=== PATIENT | female | born 1950 | race Two or more races ===

== ENCOUNTER → 2024-09-16 | Outpatient (CLI) | payer MEDICARE, MEDICAID, SELFPAY ==
--- NOTE | 2024-09-16 11:00 | XR_ITS ---
Examination: Screening digital mammography, bilateral Computer aided detection 3-D breast Tomosynthesis, bilateral Date and time of exam: September 16, 2024 1120 hours Compared to mammograms dating to 05/24/2020 Indication: Screening Technique: Nonmagnified MLO, CC views of the breasts to been obtained, reconstructed from 3-D Tomosynthesis images. R2 computer aided detection program utilized for evaluation of suspicious masses and/or abnormal calcifications. 3-D Tomosynthesis images obtained. Findings: Scattered areas of fibroglandular density. Benign calcifications. No interval suspicious masses Impression: BI-RADS category II: Benign Findings. Recommend 1 year follow-up mammogram.
== END | disposition home or self-care (01) ==
PROVIDERS: PCP Nurse Practitioner Family; Referring Provider Nurse Practitioner Family; Visit Provider Nurse Practitioner Family
DX: Z12.31 Encounter for screening mammogram for malignant neoplasm of breast (principal); R92.323 Mammographic fibroglandular density, bilateral breasts; R92.1 Mammographic calcification found on diagnostic imaging of breast
CPT/HCPCS: 77063; 77067

== ENCOUNTER → 2024-10-14 | Outpatient (CLI) | payer MEDICARE, MEDICAID, SELFPAY ==
--- NOTE | 2024-10-14 08:56 | XR_ITS ---
Examination: Wrist, left 3 views Technique: Wrist AP, oblique, lateral 3 views Date and time of exam: October 14, 2024 0905 hours INDICATIONS: Patient fell April 2024 postop reduction wrist fracture FINDINGS: Prominent osteopenia. Healed fracture distal radius with satisfactory alignment IMPRESSION: Healed fracture distal radius with satisfactory alignment
== END | disposition home or self-care (01) ==
PROVIDERS: PCP Nurse Practitioner Family; Referring Provider Orthopaedic Surgery; Visit Provider Orthopaedic Surgery
DX: Z87.81 Personal history of (healed) traumatic fracture (principal); Z98.890 Other specified postprocedural states
CPT/HCPCS: 73110

== ENCOUNTER → 2024-11-06 | Outpatient (CLI) | payer MEDICARE, MEDICAID, SELFPAY ==
--- NOTE | 2024-11-06 09:04 | XR_ITS ---
Examination: Bilateral hands, 6 views. Technique: AP, Oblique, Lateral each hand total 6 views Date and time of exam: November 06, 2024 0957 hours INDICATIONS: Bilateral hand pain beginning 3 days ago. FINDINGS: Severe osteopenia Old healed fracture distal left radius Bilateral significant osteoarthritis interphalangeal joints as well as first carpometacarpal joints No fractures Bilateral mild to moderate osteoarthritis radiocarpal joints Impression: Osteoarthritis as above
== END | disposition home or self-care (01) ==
PROVIDERS: PCP Nurse Practitioner Family; Referring Provider Nurse Practitioner Family; Visit Provider Nurse Practitioner Family
DX: M19.042 Primary osteoarthritis, left hand (principal); M19.041 Primary osteoarthritis, right hand
CPT/HCPCS: 73130

== ENCOUNTER → 2024-12-09 | Outpatient (CLI) | payer MEDICARE, MEDICAID, SELFPAY ==
--- NOTE | 2024-12-09 | XR_ITS ---
EXAMINATION: Cervical spine, 5 views Technique: Cervical spine AP, AP odontoid, lateral, bilateral obliques, 5 views Exam date and time: December 09, 2024 0814 hours INDICATIONS: Neck pain beginning one year ago. FINDINGS: Straightening normal cervical lordosis. Intact odontoid No cervical fracture. Advanced degenerative disc disease C5-C6, C6-C7 with mild bilateral neural foraminal stenosis IMPRESSION: Advanced degenerative disc disease C5-C6, C6-C7
--- NOTE | 2024-12-09 | XR_ITS ---
Examination: Scoliosis survey 2, views. Technique: AP standing thoracic, AP standing lumbar spine, two views. Exam date and time: December 09, 2024 0814 hours INDICATIONS: Back pain one year. FINDINGS: Significant osteopenia Number dextroscoliosis 6 degrees No vertebral body fracture No segmentation anomalies Mild bilateral hip osteoarthritis Impression: Lumbar dextroscoliosis 6 degrees
== END | disposition home or self-care (01) ==
PROVIDERS: PCP Nurse Practitioner Family; Referring Provider Nurse Practitioner Family; Visit Provider Nurse Practitioner Family
DX: M50.323 Other cervical disc degeneration at C6-C7 level (principal); M41.86 Other forms of scoliosis, lumbar region
CPT/HCPCS: 72050; 72082

== ENCOUNTER 2024-12-17 08:36 | Outpatient (AMB) | payer MEDICARE, MEDICAID, SELFPAY ==
[2024-12-17 08:47] VITALS: BP 157/69; PULSE 59; RESP 18; TEMP 36; O2SAT 99; BMI 26.7
--- NOTE | 2024-12-17 08:47 | AMB.GYNCLNOT ---
Vital Signs 12/17/24 08:47 Height 1.68 m Height Method Stated Weight 75.466 kg Weight Measurement Method Standing Scale BMI 26.7 BP 157/69 H Blood Pressure Source Automatic Cuff Blood Pressure Location Left Upper Arm Position Sitting Respiration 18 Pulse 59 L Pulse Source Monitor Temp 96.8 F Temp Source Oral Pulse Oximetry (%) 99 Oxygen Delivery Method Room Air Allergies/Home Meds Allergies & Medications Allergies iodine Allergy (Intermediate, Verified 12/17/24 08:49) Rash aspirin Allergy (Mild, Verified 12/17/24 08:49) VOMITING metoclopramide Adverse Reaction (Intermediate, Verified 12/17/24 08:49) VOMITING Sulfa (Sulfonamide Antibiotics) Adverse Reaction (Mild, Verified 12/17/24 08:49) VOMITING Medication Reconciliation paroxetine HCl 20 mg tablet (Paxil) 20 mg PO QAM #0 tabs 09/13/16 [History Confirmed 12/17/24] atenolol 50 mg tablet 50 mg PO BID 10/08/19 [History Confirmed 12/17/24] clonazepam 0.5 mg tablet 0.5 mg PO HS 08/12/21 [History Confirmed 12/17/24] Held on 12/22/23. Instructions: Resume on 12/23/23. cetirizine 10 mg tablet 10 mg PO QDAY 12/21/23 [History Confirmed 12/17/24] levothyroxine 50 mcg tablet 50 mcg PO QDAY 12/21/23 [History Confirmed 12/17/24] simvastatin 20 mg tablet 20 mg PO HS 12/21/23 [History Confirmed 12/17/24] pantoprazole 40 mg tablet,delayed release (Protonix) 40 mg PO QDAY #30 tabs 12/22/23 [Rx Confirmed 12/17/24] benzonatate 100 mg capsule 100 mg PO TID PRN cough #20 caps 12/27/23 [Rx Confirmed 12/17/24] ibuprofen 600 mg tablet 600 mg PO Q8H PRN fever or pain #30 tabs 04/30/24 [Rx Confirmed 12/17/24] ciprofloxacin HCl 500 mg tablet 500 mg PO QPM 90 days #90 tabs 12/17/24 [Rx] Intake Visit Data Collection New Patient or Established: Established Patient (seen at [facility] within 3 years) Reason for Visit:: Recurrent UTI, Atrophic vaginitis Seen by Clinical Staff ONLY (RN/MA): No 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 Electrical Manufacturing Engineer's name/title: SYLVIA AMADORREZ / RATE SETTER Do You Feel Safe at Home: Yes Authorities Contacted: N/A PCP or OBGYN visit in last 3 months: Yes Date of Last PCP or OBGYN visit: 12/09/24 Hx Now: No Are you currently on any form of Control: No Pain Present Currently: No Pain Scale Used: Sanchez-Hamilton/Numerical Pain scale:: 0 Smoking Status Smoking Status: Never smoker 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 1. Little interest or pleasure in doing things: not at all 2. Feeling down, depressed, or hopeless: not at all Total score: 0 PHQ-9 3. Trouble falling or staying asleep, or sleeping too much: Not at all 4. Feeling tired or having little energy: Not at all 5. Poor appetite or overeating: Not at all 6. Feeling bad about yourself - or that you are a failure or have let yourself or your family down: Not at all 7. Trouble concentrating on things, such as reading the newspaper or watching television: Not at all 8. Moving or speaking so slowly that other people could have noticed? - Or the opposite - being so fidgety or restless that you have been moving around a lot more than usual: not at all 9. Thoughts that you would be better off or of hurting yourself in some way: Not at all Total score: 0 If you checked off any problems, how difficult have these problems made it for you to do your work, take care of things at home, or get along with other people?: not difficult at all Source: Developed by Drs. Reji Martinez, Thao Dasilva, Sung Peter and colleagues, with an educational fallon from [employer]. Depression screen completed yes Social History Living Situation History Lives With: Family Housing: House Tobacco History Smoking Status: Never smoker Second Hand Smoke Exposure: No Alcohol History Alcohol Intake: Never Domestic Abuse History Do You Feel Safe at Home: Yes Past Medical History Past Medical History Have you ever been diagnosed with any of the following: Neurological Problems Seizures: No Cardiology Problems Hypercholesterolemia: Yes Congestive Heart Failure: No Hypertension: Yes Respiratory Problems Chronic Obstructive Pulmonary Disease (COPD): No Stomache/Intestinal Problems Hepatitis: No Gastrointestinal Bleed: Yes Gastroesophageal Reflux Disease: Yes Genital/Urinary Problems Renal Disease: No Reproductive Problems Pelvic Inflammatory Disease: No Previous Pregnancies: Yes Musculoskeletal Problems Arthritis: Yes Carpal Tunnel Syndrome: No Endocrine Problems Diabetes Mellitus Type 1: No Diabetes Mellitus Type 2: No Psychologic Problems Depression: Yes Anxiety: Yes Other Problems Blood Transfusions: No Blood Transfusion Reaction: No Anesthesia Reactions: No Organ Transplant: No MRSA: No Measles: Yes Cancer: No History of Present Illness HPI Narrative Brigette Ellsworth is a 75-year-old postmenopausal female referred by her PCP for recurrent urinary tract infections (UTIs). She has experienced multiple episodes of UTIs over the past year, occurring approximately 5 times. Her symptoms include burning sensation during urination and back and neck pain, which she attributes to the UTIs. When treated with antibiotics, her symptoms resolve. The patient reports loss of equilibrium with change in position, lasting a few seconds, though it's unclear if this is related to her UTIs. She is currently using vaginal estrogen cream as prescribed. She started using it once a day for 2 weeks and has now reduced the frequency to twice a week. This treatment regimen has been ongoing for a total of 8 months. The cream was prescribed to address vaginal dryness associated with menopause, which can increase susceptibility to UTIs. A recent urine dipstick test performed at her PCP's office on November 22, 2024, was negative for nitrites but positive for leukocytes. Additionally, a urine culture done in [place] was reported as negative. The patient has a history of long-term dysuria, scoliosis, unspecified bradycardia, cervicalgia, anxiety disorder, long-term use of opioid pain medication, and prediabetes. ROS: General: Positive for loss of equilibrium with change in position. Genitourinary: Positive for dysuria, burning sensation. Musculoskeletal: Positive for back pain, neck pain, low back pain. Neurological: Positive for loss of equilibrium lasting a few seconds with positional changes. Diagnostic Test Results and Labs: - Urine dipstick (11/22/2024): Negative for nitrites, positive for leukocytes - Urine culture (date not specified): Negative Exam General Limitations: no limitations General Appearance: alert, in no apparent distress, comfortable, cooperative, healthy appearing, well developed and well groomed Head Head exam: atraumatic, normocephalic and normal inspection Eye Eye exam: Present normal appearance, PERRL and EOMI Neck Neck exam: Present normal inspection, full ROM and trachea midline Chest Chest inspection: Present normal inspection and symmetric chest wall rise Abdominal Abdominal exam: Present soft and normal bowel sounds Psych Psychiatric exam: Present normal affect and normal mood Skin Skin exam: Present warm, dry, intact and normal color Assessment & Plan Diagnosis / Problem List (1) Atrophic vaginitis: Status: Acute (2) Recurrent UTI: Status: Acute Plan Recurrent Urinary Tract Infections (UTIs): - Patient reports approximately 5 UTIs in past year - Recent urine dipstick positive for leukocytes, negative for nitrites - Urine culture from [place] was negative - Postmenopausal status and vaginal dryness may contribute - Currently using vaginal estrogen cream for vaginal atrophy - Initiate 3-month course of bladder-specific antibiotic - Send prescription to [facility] - Continue vaginal estrogen cream for 6 months total - Once daily for 2 weeks, then twice weekly - Provide education on UTI prevention and vaginal hygiene - Follow up in 3 months to reassess Postmenopausal Vaginal Atrophy: - Using vaginal estrogen cream for dryness - Current regimen effective and well-tolerated - Continue current vaginal estrogen cream regimen - Once daily for 2 weeks, then twice weekly - Total duration: 8 months (6 months remaining) - Reassess efficacy and need for continued treatment at follow-up Preventive Care: - Patient is 74 years old - Discontinue cervical cancer screening (Pap smears) - Discontinue mammogram screening next year - Educate on age-appropriate preventive care recommendations Additional Plan Follow Up: 3 Months Advanced Care Planning Advance care planning discussed with:: patient Office Procedures OB Clinic LOC & Office Proc's Nursing/Assessment Patient Status: Established Patient OB Clinic Nursing Assessment: BP Monitoring, Medication Reconciliation, Update PMH in EMR and Vital Signs OB Clinic Coordination of Care: Consent,records obtained, informed consent, Education Simp Pt/Fam, Lab and Imaging orders and Staff clarify orders Special Needs: Heart tones Established Patient Charge Established Patient Point Assignment: 120 Established Patient Point Charge: EP Level 4 (120-155)
== END 2024-12-17 08:58 | disposition home or self-care (01) ==
LOC: HODSOBC 08:36
PROVIDERS: PCP Nurse Practitioner Family; Referring Provider Nurse Practitioner Family; Supervising Provider Obstetrics & Gynecology; Visit Provider Obstetrics & Gynecology
DX: N95.2 Postmenopausal atrophic vaginitis (principal); N39.0 Urinary tract infection, site not specified; Z87.440 Personal history of urinary (tract) infections
CPT/HCPCS: 99214; G0463

== ENCOUNTER → 2025-01-02 | Outpatient (CLI) | payer MEDICARE, MEDICAID, SELFPAY ==
--- NOTE | 2025-01-02 12:00 | XR_ITS ---
Examination: Bone densitometry Date and time of exam:January 02, 2025 1116 hours INDICATIONS: Menopause age 52 postmenopausal forearm fracture one year ago, personal history osteoporosis Technique: Lumbar spine and hip total bone mineralization values of an calculated. Peak reference and age match control results have been displayed. Findings: Lumbar spine total bone mineralization is0.733 gm/cm2. This is 2.9 standard deviations below peak reference. This is 0.5 standard deviations below age-matched controls. Hip total bone mineralization is 0.831 gm/cm2 This is 1.0 standard deviations below peak reference. This is 0.8 standard deviations above age-matched controls Impression: There is osteoporosis based on lumbar spine measurements. There is osteopenia based on hip measurements Lumbar mineralization is decreased 1.7% compared with August 07, 2019 Hip mineralization is increased 1.5% compared with August 07, 2019
== END | disposition home or self-care (01) ==
LOC: CDIM 10:47
PROVIDERS: Referring Provider Nurse Practitioner Family; Visit Provider Nurse Practitioner Family
DX: M81.0 Age-related osteoporosis without current pathological fracture (principal); M85.88 Other specified disorders of bone density and structure, other site
CPT/HCPCS: 77080

== ENCOUNTER → 2025-02-20 | Outpatient (CLI) | payer MEDICARE, MEDICAID, SELFPAY ==
--- NOTE | 2025-02-20 10:29 | XR_ITS ---
Examination: Lumbar spine, 4 views Technique: Lumbar spine AP, lateral, standing lateral flexion, standing lateral extension 4 views Exam date and time: 10/23/2024 1127 hours INDICATIONS: Low back pain months. FINDINGS: Prominent osteopenia Lumbar dextroscoliosis 11 degrees No lumbar fracture Diffuse mild lumbar disc narrowing Mild lumbar spondylosis Significant reduced range of motion between flexion and extension IMPRESSION: Lumbar dextroscoliosis 11 degrees Mild diffuse lumbar disc narrowing
== END | disposition home or self-care (01) ==
PROVIDERS: PCP Nurse Practitioner Family; Referring Provider Specialist; Visit Provider Specialist
DX: M41.86 Other forms of scoliosis, lumbar region (principal); M48.061 Spinal stenosis, lumbar region without neurogenic claudication
CPT/HCPCS: 72110

== ENCOUNTER 2025-03-19 08:40 | Outpatient (AMB) | payer MEDICARE, MEDICAID, SELFPAY ==
[2025-03-19 08:51] VITALS: BP 132/80; PULSE 62; RESP 17; TEMP 36.2; O2SAT 94; BMI 27.3
--- NOTE | 2025-03-19 08:51 | AMB.GYNCLNOT ---
Vital Signs 03/19/25 08:51 Height 1.68 m Height Method Measured Weight 77.281 kg Weight Measurement Method Standing Scale BMI 27.3 BP 132/80 H Blood Pressure Source Automatic Cuff Blood Pressure Location Right Upper Arm Position Sitting Respiration 17 Pulse 62 Pulse Source Monitor Temp 97.1 F Temp Source Temporal Artery Scan Pulse Oximetry (%) 94 L Oxygen Delivery Method Room Air Allergies/Home Meds Allergies & Medications Allergies iodine Allergy (Intermediate, Verified 03/19/25 08:52) Rash aspirin Allergy (Mild, Verified 03/19/25 08:52) VOMITING metoclopramide Adverse Reaction (Intermediate, Verified 03/19/25 08:52) VOMITING Sulfa (Sulfonamide Antibiotics) Adverse Reaction (Mild, Verified 03/19/25 08:52) VOMITING Medication Reconciliation paroxetine HCl 20 mg tablet (Paxil) 20 mg PO QAM #0 tabs 09/13/16 [History Confirmed 03/19/25] atenolol 50 mg tablet 50 mg PO BID 10/08/19 [History Confirmed 03/19/25] clonazepam 0.5 mg tablet 0.5 mg PO HS 08/12/21 [History Confirmed 03/19/25] Held on 12/22/23. Instructions: Resume on 12/23/23. cetirizine 10 mg tablet 10 mg PO QDAY 12/21/23 [History Confirmed 03/19/25] levothyroxine 50 mcg tablet 50 mcg PO QDAY 12/21/23 [History Confirmed 03/19/25] simvastatin 20 mg tablet 20 mg PO HS 12/21/23 [History Confirmed 03/19/25] pantoprazole 40 mg tablet,delayed release (Protonix) 40 mg PO QDAY #30 tabs 12/22/23 [Rx Confirmed 03/19/25] benzonatate 100 mg capsule 100 mg PO TID PRN cough #20 caps 12/27/23 [Rx Confirmed 03/19/25] ibuprofen 600 mg tablet 600 mg PO Q8H PRN fever or pain #30 tabs 04/30/24 [Rx Confirmed 03/19/25] ciprofloxacin HCl 500 mg tablet 500 mg PO QPM 90 days #90 tabs 12/17/24 [Rx Confirmed 03/19/25] sulfamethoxazole 800 mg-trimethoprim 160 mg tablet (Bactrim DS) 1 tab PO BID 14 days #28 tabs 03/19/25 [Rx] Intake Visit Data Collection New Patient or Established: Established Patient (seen at [facility] within 3 years) Reason for Visit:: 3 MONTH FOLLOW UP UTI Consent obtained for Telemed Visit: No Seen by Clinical Staff ONLY (RN/MA): No 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 Head Liner Installer's name/title: BRIT Do You Feel Safe at Home: Yes Authorities Contacted: N/A PCP or OBGYN visit in last 3 months: Yes Date of Last PCP or OBGYN visit: 12/17/24 Hx Now: No Are you currently on any form of Control: No Pain Present Currently: No Pain Scale Used: Sanchez-Hamilton/Numerical Pain scale:: 0 Smoking Status Smoking Status: Never smoker 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 Menstrual regularity: regular Flow: normal Monthly: Yes How many days does period last: 5 Menopausal: Yes Currently sexually active: No 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 1. Little interest or pleasure in doing things: not at all PHQ-9 3. Trouble falling or staying asleep, or sleeping too much: Not at all 4. Feeling tired or having little energy: Not at all 5. Poor appetite or overeating: Not at all 6. Feeling bad about yourself - or that you are a failure or have let yourself or your family down: Not at all 7. Trouble concentrating on things, such as reading the newspaper or watching television: Not at all 8. Moving or speaking so slowly that other people could have noticed? - Or the opposite - being so fidgety or restless that you have been moving around a lot more than usual: not at all 9. Thoughts that you would be better off or of hurting yourself in some way: Not at all If you checked off any problems, how difficult have these problems made it for you to do your work, take care of things at home, or get along with other people?: not difficult at all Source: Developed by Drs. Reji Martinez, Thao Dasilva, Sung Peter and colleagues, with an educational fallon from [employer]. Social History Living Situation History Lives With: Family Housing: House Tobacco History Smoking Status: Never smoker Second Hand Smoke Exposure: No Alcohol History Alcohol Intake: Never Domestic Abuse History Do You Feel Safe at Home: Yes History of Present Illness HPI Narrative Patient reports ongoing symptoms consistent with a UTI, despite previous treatment. She mentions forgetting to take her prescribed medication. Brigette has been using the prescribed vaginal estrogen cream, but only twice so far, instead of the recommended twice weekly application. She describes a history of urological issues, including previous incontinence surgery performed by Dr. Beverly, which has led to more frequent UTIs. The patient recalls having a slight itching before the surgery, which was bearable at the time. She reports a complex urological history, including a procedure where her urethra was injected to address urinary dripping. This intervention initially stopped the dripping, but the symptoms later returned. A subsequent needle injection in her urethra resulted in resolution of both the urinary incontinence and infections for a period of time. However, she is now experiencing recurrent UTIs. The patient has been seeing a urologist every two months for her urinary issues. She mentions a previous treatment by Dr. Slaughter, which involved a 6-week course of treatment including urinary catheterization, antibiotic administration, and approximately 5 injections. Despite this intensive treatment, her symptoms persisted after 5 days. Brigette is currently making herself lemonade as a home remedy. She has not been able to provide a urine sample during this visit due to difficulty voiding. She is a 74-year-old female presenting for a 3-month follow-up evaluation of recurrent urinary tract infections (UTIs) and atrophic vaginitis. She was previously placed on a suppressive regimen and vaginal estrogen. Medical history includes recurrent urinary tract infections, atrophic vaginitis, and urinary incontinence (resolved after treatment). Surgical history includes incontinence surgery and urethral injection procedure. Current medications include vaginal estrogen cream used twice a week, recently started. She was previously prescribed an antibiotic for UTI but forgot to take the medicine. Exam General General Appearance: alert, in no apparent distress and healthy appearing Head Head exam: atraumatic Neck Neck exam: Present normal inspection and trachea midline Chest Chest inspection: Present normal inspection and symmetric chest wall rise External exam: Present normal external exam; Absent tenderness Neuro Neurological exam: Present oriented X3 Psych Psychiatric exam: Present normal affect and normal mood Office Procedures OB Clinic LOC & Office Proc's Nursing/Assessment Patient Status: Established Patient OB Clinic Nursing Assessment: Medication Reconciliation, Update PMH in EMR and Vital Signs OB Clinic Coordination of Care: Complex Care and Chronic Disease 1-5, Consent,records obtained, informed consent, 2-3 Insurance Autorizations needed, 4+ Authorizations needed and Lab and Imaging orders Established Patient Charge Established Patient Point Assignment: 120 Established Patient Point Charge: EP Level 4 (120-155) Assessment & Plan Diagnosis / Problem List (1) Recurrent UTI: Status: Acute Plan Recurrent Urinary Tract Infections (UTIs): - Ongoing UTI symptoms despite previous suppressive regimen. - History of incontinence surgery, possibly contributing to recurrent infections. - Previous treatments include 6-week course by urologist with catheterization, antibiotic instillation, and approximately 5 injections. - History of urethral injections for urinary incontinence. - Prescribe stronger antibiotic course for longer duration. - Obtain urine culture in 2 weeks to assess infection clearance. - Follow up in 2 weeks to review urine culture results and reassess symptoms. - Recommend cranberry juice intake 3 times daily as natural antiseptic. - Advise dietary modifications: ? Reduce sugar intake ? Avoid food coloring and dyes ? Limit lemonade consumption - Continue follow-up with urologist every 2 months. Atrophic Vaginitis: - Previously prescribed vaginal estrogen cream. - Patient used cream only twice so far, insufficient for therapeutic effect. - Cream intended to improve urethral and bladder tissue integrity. - Continue vaginal estrogen cream twice weekly as previously prescribed. - Educate patient on importance of consistent use for symptom improvement and infection prevention. - Reassess effectiveness of vaginal estrogen therapy at next follow-up. Advanced Care Planning Advance care planning discussed with:: patient
== END 2025-03-19 09:15 | disposition home or self-care (01) ==
PROVIDERS: PCP Obstetrics & Gynecology; Referring Provider Obstetrics & Gynecology; Supervising Provider Obstetrics & Gynecology; Visit Provider Obstetrics & Gynecology
DX: N39.0 Urinary tract infection, site not specified (principal); N95.2 Postmenopausal atrophic vaginitis; I10 Essential (primary) hypertension; Z87.440 Personal history of urinary (tract) infections; Z87.448 Personal history of other diseases of urinary system; Z79.890 Hormone replacement therapy; Z88.2 Allergy status to sulfonamides; Z88.8 Allergy status to other drugs, medicaments and biological substances; Z88.6 Allergy status to analgesic agent; Z91.041 Radiographic dye allergy status
CPT/HCPCS: 99214; G0463

== ENCOUNTER → 2025-03-20 | Outpatient (CLI) | payer MEDICARE, MEDICAID, SELFPAY ==
--- NOTE | 2025-03-20 07:30 | XR_ITS ---
Examination: MRI lumbar spine without contrast Date and time of exam: March 20, 2025 0750 hours Comparison November 30, 2023 INDICATIONS: Low back pain radiating down the right leg one year Technique: Multiple MRI axial and sagittal sections lumbar spine. Sagittal T2-weighted images, TR 3500, TE 118 T1 weighted transverse sections, TR 688 T8.5, T2-weighted sagittal sections T1 weighted sagittal sections TR 621, TE 30 T2 axial sections, TR 4, 190, TE 84. Findings: Grade 1 spondylolisthesis L5 on S1 No lumbar fracture Diffuse lumbar disc desiccation L5-S1 4 mm central lumbar disc bulge extending to the right foramen with mild right L5 ganglionic compression L4-L5 6 mm central lumbar disc bulge L3-L4 2 mm central lumbar disc bulge L2-L3 no disc protrusion L1-L2 no disc protrusion IMPRESSION: L5-S1 4 mm central lumbar disc bulge extending to the right foramen with mild right L5 ganglionic compression L4-L5 6 mm central lumbar disc bulge
== END | disposition home or self-care (01) ==
LOC: SMRI 07:27
PROVIDERS: PCP Nurse Practitioner Family; Referring Provider Specialist; Visit Provider Specialist
DX: M51.370 Other intervertebral disc degeneration, lumbosacral region with discogenic back pain only (principal); M51.360 Other intervertebral disc degeneration, lumbar region with discogenic back pain only; G95.20 Unspecified cord compression
CPT/HCPCS: 72148

== ENCOUNTER → 2025-04-29 | Outpatient (CLI) | payer MEDICARE, MEDICAID, SELFPAY ==
--- NOTE | 2025-04-29 10:00 | XR_ITS ---
Examination: Abdomen sonogram, complete Date and time of exam: April 29, 2025, 0949 hours INDICATIONS: Mid abdominal pain beginning 3 weeks ago. Technique: Multiple real-time grayscale transabdominal sonographic images of the abdomen have been obtained. Findings: Absent gallbladder. Normal common bile duct 0.5 cm. Pancreatic head 1.8 cm. Aorta not enlarged. Liver 14.2 cm, 16 mm, 16 mm left lobe liver cyst 12 mm right lobe liver cyst, liver regular contour with fatty infiltration. Normal hepatopedal portal venous flow Patent IVC. Right kidney 10.0 cm renal cortex 1.6 cm Left kidney 9.6 cm renal cortex 1.7 cm Spleen 8.9 cm IMPRESSION: Normal ultrasound of bile duct Suspect primary hepatocellular disease, no focal solid liver lesions.
== END | disposition home or self-care (01) ==
LOC: CDIM 09:28
PROVIDERS: PCP Nurse Practitioner Family; Referring Provider Physician Assistant; Visit Provider Physician Assistant
DX: R10.9 Unspecified abdominal pain (principal)
CPT/HCPCS: 76700

== ENCOUNTER → 2025-05-16 | Outpatient (CLI) | payer MEDICARE, MEDICAID, SELFPAY ==
[2025-05-16 12:22] LABS: Misc Send Out* See Sep Rpt
[2025-05-22 06:36] LABS: Helicobacter pylori Ag, Stool* NOT DETECTED (NOT DETECTED)
== END | disposition home or self-care (01) ==
LOC: SLDO 10:15
PROVIDERS: Referring Provider Nurse Practitioner Family; Visit Provider Nurse Practitioner Family
DX: R19.7 Diarrhea, unspecified (principal)
CPT/HCPCS: 87338

== ENCOUNTER → 2025-05-26 | Outpatient (CLI) | payer MEDICARE, MEDICAID, SELFPAY ==
--- NOTE | 2025-05-26 11:22 | XR_ITS ---
Examination: Forearm, right, 2 views. Technique: Forearm, AP, lateral 2 views Date and time of exam: May 26, 2025 1124 hours INDICATIONS: Forearm pain several months. FINDINGS: Postop reduction internal fixation healed fracture distal radius No acute fracture No cortical bone destruction IMPRESSION: Healed fracture distal radius with satisfactory alignment No acute fracture
--- NOTE | 2025-05-26 11:22 | XR_ITS ---
Examination: Hand, left 3 views Technique: Hand AP, oblique, lateral 3 views Date and time of exam: May 26, 2025 1124 hours INDICATIONS: Hand pain post reduction wrist fracture several months FINDINGS: Severe osteopenia. Healed fracture distal radius with satisfactory alignment Mild to moderate osteoarthritis radiocarpal first carpometacarpal joints Moderate osteoarthritis distal interphalangeal joints second through fifth digits and interphalangeal joint first digit No erosive arthritis No fractures IMPRESSION: Healed fracture distal radius with satisfactory alignment Osteoarthritis as above
--- NOTE | 2025-05-26 11:22 | XR_ITS ---
Examination: Wrist, left 3 views Technique: Wrist AP, oblique, lateral 3 views Date and time of exam: May 26, 2025 1124 hours INDICATIONS: Wrist pain and swelling postop FINDINGS: Healed fracture distal radial metaphysis with satisfactory alignment Mild to moderate osteoarthritis radiocarpal joint Moderate osteoarthritis carpometacarpal joint, first IMPRESSION: Healed fracture distal radial metaphysis with satisfactory alignment Osteoarthritis as above
== END | disposition home or self-care (01) ==
PROVIDERS: PCP Family Medicine; Referring Provider Nurse Practitioner Family; Visit Provider Nurse Practitioner Family
DX: M19.032 Primary osteoarthritis, left wrist (principal); M19.031 Primary osteoarthritis, right wrist; M79.602 Pain in left arm; M19.042 Primary osteoarthritis, left hand; M19.041 Primary osteoarthritis, right hand; Z87.81 Personal history of (healed) traumatic fracture
CPT/HCPCS: 73090; 73110; 73130

== ENCOUNTER → 2025-07-01 | Outpatient (CLI) | payer MEDICARE, MEDICAID, SELFPAY ==
--- NOTE | 2025-07-01 07:30 | XR_ITS ---
Examination: MRI cervical spine without intravenous contrast Date and time of exam: July 01, 2025, 0721 hours, comparison October 12, 2016 Technique: Multiple axial and sagittal sections of the cervical spine to been obtained. T2 weighted sagittal sections, TR 3, 270, TE 117 T1-weighted sagittal sections, TR 500, TE 11 T1-weighted axial sections, TR 607, TE 12, axial sections TR 18, TE 27 and T2 weighted transverse sections, TR 3920, TE 122. Findings: Straightening normal cervical doses No cervical fracture Moderate degenerative disc disease C5-C6 mild degenerative disc disease C6-C7 Diffuse cervical disc desiccation No localized enlargement cervical cord C2-C3 moderate bilateral neuroforaminal stenosis C3-C4 moderate left neuroforaminal stenosis C4-C5 no disc protrusion C5-C6 3 mm central subarticular osteophyte disc complex, advanced left neuroforaminal stenosis C6-C7 moderate left neural foraminal stenosis C7-T1 no disc protrusion IMPRESSION: Moderate degenerative disc disease C5-C6 C2-C3 moderate bilateral neuroforaminal stenosis C3-C4 moderate left neural foraminal stenosis C5-C6 3 mm central subarticular osteophyte disc complex, advanced left neuroforaminal stenosis C6-C7 moderate left neuroforaminal stenosis
== END | disposition home or self-care (01) ==
LOC: SMRI 06:51
PROVIDERS: PCP Nurse Practitioner Family; Referring Provider Nurse Practitioner Family; Visit Provider Nurse Practitioner Family
DX: M50.322 Other cervical disc degeneration at C5-C6 level (principal); M48.02 Spinal stenosis, cervical region; M25.78 Osteophyte, vertebrae
CPT/HCPCS: 72141

== ENCOUNTER → 2025-08-05 | Outpatient (CLI) | payer MEDICARE, MEDICAID, SELFPAY ==
--- NOTE | 2025-08-05 09:49 | XR_ITS ---
Examination: Hand, left 3 views Technique: Hand AP, oblique, lateral 3 views Date and time of exam: August 05, 2025, 0954 hours INDICATION: Patient fell 1 year ago with wrist fracture, wrist surgery May 2024. FINDINGS: Severe osteopenia Healed fracture distal radial metaphysis with satisfactory alignment Satisfactory position orthopedic hardware Advanced osteoarthritis first carpometacarpal joint Old fracture deformity base first metacarpal Osteoarthritis interphalangeal joints, actually most severe proximal interphalangeal joints fourth and fifth digits as well as interphalangeal joint first digit IMPRESSION: Severe osteopenia Healed fracture distal radial metaphysis with satisfactory alignment Osteoarthritis as above
--- NOTE | 2025-08-05 09:49 | XR_ITS ---
Examination: Wrist, left 3 views Technique: Wrist AP, oblique, lateral 3 views Date and time of exam: August 05, 2025, 0954 hours INDICATIONS: Patient fell 1 year ago with wrist fracture, wrist surgery May 2024. FINDINGS: Severe osteopenia Healed fracture distal radial metaphysis with satisfactory alignment Orthopedic hardware satisfactory position Mild to moderate narrowing radiocarpal joint Advanced osteoarthritis first carpometacarpal joint IMPRESSION: Healed fracture distal radial metaphysis with satisfactory alignment
== END | disposition home or self-care (01) ==
PROVIDERS: PCP Nurse Practitioner Family; Referring Provider Nurse Practitioner Gerontology; Visit Provider Nurse Practitioner Gerontology
DX: M25.532 Pain in left wrist (principal); M85.842 Other specified disorders of bone density and structure, left hand; M18.12 Unilateral primary osteoarthritis of first carpometacarpal joint, left hand; M19.042 Primary osteoarthritis, left hand; Z87.81 Personal history of (healed) traumatic fracture
CPT/HCPCS: 73110; 73130